=== PATIENT | female | born 1985 | race Caucasian/White ===

== ENCOUNTER 2021-04-22 13:58 | Emergency (ER) | payer OTHER ==
[2021-04-22 17:19] LABS: BASOPHIL 0.3 % (0-2); EOSINOPHIL 0.8 % (0-5); HCT 46.5 % (37.0-47.0); HGB 15.1 g/dl (12.5-16.0); LYMPHOCYTE 13.2 % (15-48); MCH 30.8 pg (25.0-31.0); MCHC 32.5 g/dL (32.0-36.0); MCV 94.9 fL (78.0-100.0); MONOCYTE 4.7 % (0-12); MPV 10.5 fL (6.0-9.5); NEUTROPHIL 80.5 % (41-80); NRBC 0; PLT 234 K/uL (150-400); RDW 12.3 % (11.5-14.0); WBC 12.8 K/uL (4.0-10.5)
[2021-04-22 17:50] LABS: ALBUMIN 4.3 g/dL (3.4-5.0); BILIRUBIN - TOTAL 0.5 mg/dL (0.2-1.0); BUN/CREAT RATIO (CALC) 12.2 RATIO; CREATININE 0.74 mg/dL (0.51-0.95); GLOBULIN (CALCULATION) 3.8 g/dL; POTASSIUM 4.1 mmol/L (3.5-5.1); TOTAL PROTEIN 8.1 g/dL (6.4-8.2)
[2021-04-22 17:58] LABS: BILIRUBIN NEGATIVE (NEGATIVE); BLOOD NEGATIVE Ery/uL (NEGATIVE); CLARITY CLEAR (CLEAR); COLOR YELLOW (YELLOW); GLUCOSE (U) NORMAL (NORMAL); LEUKOCYTES NEGATIVE Leu/uL (NEGATIVE); NITRITE NEGATIVE (NEGATIVE); PROTEIN NEGATIVE (NEGATIVE); UROBILINOGEN 0.2 mg/dL (0.2-1.0)
[2021-04-22 19:19] LABS: LACTIC ACID 0.5 mmol/L (0.4-1.9)
[2021-04-22] MEDS ORDERED: NORCO 5-325 TA1 EACH PO (20:28)
== END 2021-04-22 20:55 | disposition home or self-care (01) ==
LOC: FER 13:58
PROVIDERS: Nurse Practitioner Family
DX: K52.9 Noninfective gastroenteritis and colitis, unspecified (principal)
CPT/HCPCS: 36415; 80053; 81003; 82150; 83605; 83690; 85025; J2270; J2405; J7030